=== PATIENT | male | born 1965 | race Caucasian/White ===

== ENCOUNTER 2017-06-16 18:37 | Emergency (ER) | payer OTHER ==
[~2017-06-16] VITALS: Ht 162.6 cm; Wt 91.0 kg
[2017-06-16] MEDS ORDERED: FLUORESCEIN SODIUM 1MG/STRIP RIGHTEYE ONE (20:15)
[2017-06-16] MEDS ORDERED: TETRACAINE 0.5% OPHTH DROPS 4ML RIGHTEYE ONE (20:15)
[2017-06-16] MEDS ORDERED: PREDNISOLONE ACETATE 1% OPHTH DROPS 1ML RIGHTEYE STA (21:20)
[2017-06-16] MEDS ORDERED: CYCLOPENTOLATE HCL 1% OPHTH DROPS 2ML RIGHTEYE ONE (21:30)
[2017-06-16 22:32] VITALS: BP 148/90
== END 2017-06-16 22:33 | disposition home or self-care (01) ==
LOC: ER 18:37
DX: H20.9 Unspecified iridocyclitis (principal)
CPT/HCPCS: 99283